=== PATIENT | male | born 1995 | race Caucasian/White ===

== ENCOUNTER 2016-10-10 20:10 | Emergency (ER) | payer OTHER, SELFPAY ==
--- NOTE | 2016-10-10 21:04 | EDDOCDS ---
Nurse's Notes [facility] Name: Evens Marie Age: 21 yrs Sex: Male : 1995 Arrival Date: 10/10/2016 Time: 20:[address] [facility] MD: Diagnosis: Irritability and anger Presentation: 10/10 20:34 Presenting complaint: Patient states: "I said something out of context like, 'I don't mb9 want to live', but I was just mad. I didn't mean it". pt denies si/hi. pt reports that his father recently . Mental Health Triage Level: Level 2: The patient was brought to the ED for evaluation because of a legal pickup order. Adult Sepsis Screening: The patient does not have new or worsening altered mentation. Patient's respiratory rate is less than 22. Systolic blood pressure is greater than 100. Patient has a qSOFA score of 0- Negative Sepsis Screen. Suicide/Homicide risk assessment- the patient denies having any suicidal and/or homicidal ideations and does not present with any other emotional, behavioral or mental health complaints. Status: Patient is not a member services representative or dependent. Transition of care: patient was not received from another setting of care. 20:34 Acuity: CHANG Level 3 mb9 20:34 Method Of Arrival: Police Car mb9 Triage Assessment: 20:36 General: Appears in no apparent distress, Behavior is appropriate for age, cooperative. mb9 Pain: Denies pain. Pt Declines HIV testing. The patient is triaged at the bedside. See Assessment in Nurses Notes section of ED record. Respiratory: Airway is patent Respiratory effort is even, unlabored. Historical: - Allergies: No known drug Allergies; - Home Meds: 1. none - PMHx: ADHD; - PSHx: none; - Social history: Smoking status: Patient states was never smoker of tobacco. No barriers to communication noted, The patient speaks fluent Albanian. - Family history: Not pertinent. - : The pt / caregiver states he / she is not on anticoagulants. Home medication list is obtained from the patient. - Exposure Risk Screening:: None identified. Screenin:01 Screening information is obtained from the patient. Fall risk: No risks identified. rw1 Assistance ADL's: requires no assistance with activities of daily living. Abuse/DV Screen: The patient / caregiver reports he/she is: not in a situation that causes fear, pain or injury. Nutritional screening: No deficits noted. Advance Directives: Currently, there is no health care proxy. home support is adequate. Assessment: 20:36 General: see triage assessment. rw1 21:01 Reassessment: Patient appears in no apparent distress at this time. Patient denies pain rw1 at this time. Patient states feeling better. Patient states symptoms have improved. Vital Signs: 20:17 BP 130 / 69; Pulse 93; Resp 18; Temp 96.9(O); Pulse Ox 96% on R/A; Weight 99.79 kg (R); rw1 Height 5 ft. 10 in. (177.80 cm) (R); Pain 0/10; 20:17 Body Mass Index 31.57 (99.79 kg, 177.80 cm) rw1 Vitals: 20:17 Log In time N/A- police car arrival. rw1 ED Course: 20:12 Patient visited by Jailyn De La Cruz. gjb 20:12 Patient moved to Waiting gjb 20:14 Patient moved to [address] 20:16 Mary Layton MD is Attending Physician. fg 20:16 Patient visited by Mary Layton MD. fg 20:16 Solo Allen LPN is Primary Nurse. rw1 20:18 Patient visited by Solo Allen LPN. rw1 20:31 Patient visited by Hola Panda. tr 20:35 Triage Initiated mb9 20:48 Patient visited by Hola Panda. tr 21:00 Patient visited by Hola Panda. tr 21:01 The patient / caregiver is instructed regarding the plan of care and ED course. rw1 21:01 No IV's were initiated during this patient's visit. No procedures done that require rw1 assistance. Order Results: There are currently no results for this order. Outcome: 20:55 Discharge ordered by Provider. fg 21:01 Discharge Assessment: Patient awake, alert and oriented x 3. No cognitive and/or rw1 functional deficits noted. Patient verbalized understanding of disposition instructions. patient administered narcotics - no. The following High Risk Discharge criteria are identified: None. Discharged to home ambulatory, with family. Condition: stable Condition: improved. Discharge instructions given to patient, Instructed on discharge instructions, follow up and referral plans. Demonstrated understanding of instructions, Pt was receptive of discharge instructions/ teaching. No special radiology studies were completed. Property sent home with patient. 21:02 Patient left the ED. rw1 Signatures: Dominic Lucas RN RN Hola Sullivan Robert, LPN LPN rw1 Renzo Arellano RN RN mb9 Mary Layton MD MD fg Beck, Gabriela gjb MTDD
--- NOTE | 2016-10-10 21:04 | EDDOCDS ---
Physician Documentation [facility] Name: Evens Marie Age: 21 yrs Sex: Male : 1995 Arrival Date: 10/10/2016 Time: 20:10 Bed [facility] Private MD: Disposition: 10/10/16 20:55 Discharged to Home/Self Care. Impression: Irritability and anger. - Condition is Stable. - Discharge Instructions: Anger Management. - Medication Reconciliation, Local Pharmacy Hours form. - Follow up: Private Physician; When: Call to arrange an appointment; Reason: Continuance of care. - Problem is chronic. - Symptoms have improved. Historical: - Allergies: No known drug Allergies; - Home Meds: 1. none - PMHx: ADHD; - PSHx: none; - Social history: Smoking status: Patient states was never smoker of tobacco. No barriers to communication noted, The patient speaks fluent Turkish. - Family history: Not pertinent. - : The pt / caregiver states he / she is not on anticoagulants. Home medication list is obtained from the patient. - Exposure Risk Screening:: None identified. Vital Signs: 10/10 20:17 BP 130 / 69; Pulse 93; Resp 18; Temp 96.9(O); Pulse Ox 96% on R/A; Weight 99.79 kg / rw1 220 lbs (R); Height 5 ft. 10 in. (177.80 cm) (R); Pain 0/10; 20:17 Body Mass Index 31.57 (99.79 kg, 177.80 cm) rw1 MDM: 20:16 Consult PFS/PSA/Bronze Plater ordered. fg 20:16 Consult PFS/PSA/Bronze Plater: Patient's case requires discussion with on-call fg Psychiatrist ordered. 20:16 PSA/PFS to call Nursing Wholesale Parts Salesperson, to enter [place] data [place] if patient fg involuntarily admitted or transferred for SI or HI ordered. 20:16 Confirm accurate psychiatric medication list and times of last dosage ordered. fg 20:16 Detain Pt Until Medically/PFS Cleared ordered. fg 20:56 Consult PFS/PSA/Bronze Plater complete. rw1 20:56 Consult PFS/PSA/Bronze Plater: Patient's case requires discussion with on-call rw1 Psychiatrist complete. 20:56 PSA/PFS to call Nursing Wholesale Parts Salesperson, to enter [place] data [place] if patient rw1 involuntarily admitted or transferred for SI or HI complete. Signatures: Dispatcher [employer] EDMS Solo Allen LPN CONVEYOR LINE BAKERY WORKER rw1 Renzo Arellano,JESSE RN mb9 Mary Layton MD MD The chart was reviewed and I authenticate all verbal orders and agree with the evaluation and treatment provided.Corrections: (The following items were deleted from the chart) 20:21 20:17 ACETAMINOPHEN LEVEL+LAB ordered. EDMS EDMS 20:21 20:17 BASIC METABOLIC PROFILE+LAB ordered. EDMS EDMS 20:21 20:17 COMPLETE BLOOD COUNT+LAB ordered. EDMS EDMS 20:21 20:17 DRUG EVAL TOXICOLOGY ED ONLY+LAB ordered. EDMS EDMS 20:21 20:17 ETHYL ALCOHOL (ETHANOL)+LAB ordered. EDMS EDMS 20:21 20:17 LIVER PROFILE+LAB ordered. EDMS EDMS 20:23 20:17 SALICYLATE LEVEL+LAB ordered. EDMS EDMS 20:23 20:17 THYROID STIMULATING HORMONE+LAB ordered. EDMS EDMS MTDD
--- NOTE | 2016-10-12 22:03 | EDDOCDS ---
Nurse's Notes [facility] Name: Evens Marie Age: 21 yrs Sex: Male : 1995 Arrival Date: 10/10/2016 Time: 20:10 Bed [facility] MD: Diagnosis: Irritability and anger Presentation: 10/10 20:34 Presenting complaint: Patient states: "I said something out of context like, 'I don't mb9 want to live', but I was just mad. I didn't mean it". pt denies si/hi. pt reports that his father recently . Mental Health Triage Level: Level 2: The patient was brought to the ED for evaluation because of a legal pickup order. Adult Sepsis Screening: The patient does not have new or worsening altered mentation. Patient's respiratory rate is less than 22. Systolic blood pressure is greater than 100. Patient has a qSOFA score of 0- Negative Sepsis Screen. Suicide/Homicide risk assessment- the patient denies having any suicidal and/or homicidal ideations and does not present with any other emotional, behavioral or mental health complaints. Status: Patient is not a creative services writer or dependent. Transition of care: patient was not received from another setting of care. 20:34 Acuity: CHANG Level 3 mb9 20:34 Method Of Arrival: Police Car mb9 Triage Assessment: 20:36 General: Appears in no apparent distress, Behavior is appropriate for age, cooperative. mb9 Pain: Denies pain. Pt Declines HIV testing. The patient is triaged at the bedside. See Assessment in Nurses Notes section of ED record. Respiratory: Airway is patent Respiratory effort is even, unlabored. Historical: - Allergies: No known drug Allergies; - Home Meds: 1. none - PMHx: ADHD; - PSHx: none; - Social history: Smoking status: Patient states was never smoker of tobacco. No barriers to communication noted, The patient speaks fluent Slovenian. - Family history: Not pertinent. - : The pt / caregiver states he / she is not on anticoagulants. Home medication list is obtained from the patient. - Exposure Risk Screening:: None identified. Screenin:01 Screening information is obtained from the patient. Fall risk: No risks identified. rw1 Assistance ADL's: requires no assistance with activities of daily living. Abuse/DV Screen: The patient / caregiver reports he/she is: not in a situation that causes fear, pain or injury. Nutritional screening: No deficits noted. Advance Directives: Currently, there is no health care proxy. home support is adequate. Assessment: 20:36 General: see triage assessment. rw1 21:01 Reassessment: Patient appears in no apparent distress at this time. Patient denies pain rw1 at this time. Patient states feeling better. Patient states symptoms have improved. Mental Health Eval: 20:57 Status: The patient is not a creative services writer or dependent. [facility] jfb Behavioral Health: The patient is not an established patient of [facility] Behavioral Health. Referral Information: Evaluation referral is generated by a police agency: 9.41 [facility] Readlynelisa Menezes badge #[id number]. The patient was referred for evaluation because PT made a statement of self harm. Subjective: The patients chief complaint is Per PT his father two years ago from a heart attack and that he got along with his dad very well but has strained relationship with his mother. His parents were not together when he had . PT's anselmo's father yesterday which has PT thinking of his father. 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 PT also admits that he and his mother argue almost everytime they have contact. PT escalated while they were arguing "I had a melt down" PT admits he punched the wall repeatedly with his right hand and that he typically will punch things if very frustrated. PT denies pain in his hand and declined treatment for it. Dr. Layton was made aware. Mother called police during the "melt down" and PT told the responding officer that he didn't want to live anymore. PT now denies he is suicidal or that he ever was. He denies hx of SI or attempts. Mother and her were interviewed separately and their main concern for PT is his angry mood swings. PT accepted referral information for outpatient care. . Delusions are denied. Patient's mood is depressed, Hallucinations are denied. Mental Health history: no relevant mental health problems or treatments. Mental Health Admissions: None. Current Outpatient Mental Health Services: None. Current living environment is The patient currently lives with a roommate, . Patient presents to Emergency Department with the following symptoms within the past 2 weeks: aggression, Punched a wall several times anger, depressed mood, labile mood, poor impulse control. Substance abuse: Pt denies. Mental status exam: Patients appearance is appropriate, Patient's behavior is cooperative, Speech is normal. Affect is appropriate. Mood is anxious. Hallucinations are denied. Appetite is normal. Memory is good. Energy level is normal. Content of thought is depressive. PT is worried about his financial situation Thought process is intact. Cognitive level is oriented to person, place, time and situation Patient's insight is fair. Judgement is fair. Rapport with interviewer is good. Suicidal Ideation is denied. Homicidal ideation is denied. Disposition: Medically cleared for disposition by Mary Layton MD Psychiatric Consult is deferred per ED physician, Dr Layton. The patient has a safe destination which is to his home The patient's discharge transportation plan is With a family member, Mother and step mother. [facility] Admission Criteria: Not Applicable. Narrative: PT discharged home with referral information. Vital Signs: 20:17 BP 130 / 69; Pulse 93; Resp 18; Temp 96.9(O); Pulse Ox 96% on R/A; Weight 99.79 kg (R); rw1 Height 5 ft. 10 in. (177.80 cm) (R); Pain 0/10; 20:17 Body Mass Index 31.57 (99.79 kg, 177.80 cm) rw1 Vitals: 20:17 Log In time N/A- police car arrival. rw1 ED Course: 20:12 Patient visited by Jailyn De La Cruz. gjb 20:12 Patient moved to Waiting gjb 20:14 Patient moved to [address] 20:16 Mary Layton MD is Attending Physician. fg 20:16 Patient visited by Mary Layton MD. fg 20:16 Solo Allen LPN is Primary Nurse. rw1 20:18 Patient visited by Solo Allen LPN. rw1 20:31 Patient visited by Hola Panda. tr 20:35 Triage Initiated mb9 20:48 Patient visited by Hola Panda. tr 21:00 Patient visited by Hola Panda. tr 21:01 The patient / caregiver is instructed regarding the plan of care and ED course. rw1 21:01 No IV's were initiated during this patient's visit. No procedures done that require rw1 assistance. 21:10 E Legal paperwork was scanned into [employer] and attached to record. jl 21:10 PSA Outpatient Referrals was scanned into [employer] and attached to record. jl 22:05 [facility] Payment Agreement was scanned into [employer] and attached to record. zo 10/11 09:07 T-Sheet-- Draft Copy was scanned into [employer] and attached to record. gb Attachments: 10/10 21:10 E Legal paperwork jl Order Results: There are currently no results for this order. Outcome: 10/10 20:55 Discharge ordered by Provider. fg 21:01 Discharge Assessment: Patient awake, alert and oriented x 3. No cognitive and/or rw1 functional deficits noted. Patient verbalized understanding of disposition instructions. patient administered narcotics - no. The following High Risk Discharge criteria are identified: None. Discharged to home ambulatory, with family. Condition: stable Condition: improved. Discharge instructions given to patient, Instructed on discharge instructions, follow up and referral plans. Demonstrated understanding of instructions, Pt was receptive of discharge instructions/ teaching. No special radiology studies were completed. Property sent home with patient. 21:02 Patient left the ED. rw1 Signatures: Dominic Lucas, RN RN Alex Poole, PSA PSA oRxie Culp Reg Reg gb Rasmussen, Tim tr Workman, Robert,DISC SANDER DISC SANDER rw1 Solitario Mcfarlane Julie, PSA PSA Renzo Nunez RN RN mb9 Mary Layton MD MD fg Beck, Gabriela gjb Chart Complete MTDD
--- NOTE | 2016-10-12 22:03 | EDDOCDS ---
Physician Documentation [facility] Name: Evens Marie Age: 21 yrs Sex: Male : 1995 Arrival Date: 10/10/2016 Time: 20:[address] [facility] Private MD: Disposition: 10/10/16 20:55 Discharged to Home/Self Care. Impression: Irritability and anger. - Condition is Stable. - Discharge Instructions: Anger Management. - Medication Reconciliation, Local Pharmacy Hours form. - Follow up: Private Physician; When: Call to arrange an appointment; Reason: Continuance of care. - Problem is chronic. - Symptoms have improved. Historical: - Allergies: No known drug Allergies; - Home Meds: 1. none - PMHx: ADHD; - PSHx: none; - Social history: Smoking status: Patient states was never smoker of tobacco. No barriers to communication noted, The patient speaks fluent Croatian. - Family history: Not pertinent. - : The pt / caregiver states he / she is not on anticoagulants. Home medication list is obtained from the patient. - Exposure Risk Screening:: None identified. Vital Signs: 10/10 20:17 BP 130 / 69; Pulse 93; Resp 18; Temp 96.9(O); Pulse Ox 96% on R/A; Weight 99.79 kg / rw1 220 lbs (R); Height 5 ft. 10 in. (177.80 cm) (R); Pain 0/10; 20:17 Body Mass Index 31.57 (99.79 kg, 177.80 cm) rw1 MDM: 20:16 Consult PFS/PSA/Neurosurgery Physician ordered. fg 20:16 Consult PFS/PSA/Neurosurgery Physician: Patient's case requires discussion with on-call fg Psychiatrist ordered. 20:16 PSA/PFS to call Nursing Psychodramatist, to [place] data [place] if patient fg involuntarily admitted or transferred for SI or HI ordered. 20:16 Confirm accurate psychiatric medication list and times of last dosage ordered. fg 20:16 Detain Pt Until Medically/PFS Cleared ordered. fg 20:56 Consult PFS/PSA/Neurosurgery Physician complete. rw1 20:56 Consult PFS/PSA/Neurosurgery Physician: Patient's case requires discussion with on-call rw1 Psychiatrist complete. 20:56 PSA/PFS to call Nursing Psychodramatist, to enter [place] data [place] if patient rw1 involuntarily admitted or transferred for SI or HI complete. 21:10 M[facility] Legal paperwork was scanned into [employer] and attached to record. jl 21:10 PSA Outpatient Referrals was scanned into MEDHOST and attached to record. jl :05 [facility] Payment Agreement was scanned into MEDHOST and attached to record. zo 10/11 09:07 T-Sheet-- Draft Copy was scanned into [employer] and attached to record. gb Signatures: Dispatcher Med[employer] EDMS Alex Manjarrez, PSA PSA jl Roxie Cardona, Reg Reg gb Alejandro,Solo,PHYSICIAN SCIENTIST PHYSICIAN SCIENTIST rw1 Solitario Mcfarlane Michael,RN RN mb9 Mary Layton MD MD fg The chart was reviewed and I authenticate all verbal orders and agree with the evaluation and treatment provided.Corrections: (The following items were deleted from the chart) 10/10 20:21 20:17 ACETAMINOPHEN LEVEL+LAB ordered. EDMS EDMS 20:21 20:17 BASIC METABOLIC PROFILE+LAB ordered. EDMS EDMS 20:21 20:17 COMPLETE BLOOD COUNT+LAB ordered. EDMS EDMS 20:21 20:17 DRUG EVAL TOXICOLOGY ED ONLY+LAB ordered. EDMS EDMS 20:21 20:17 ETHYL ALCOHOL (ETHANOL)+LAB ordered. EDMS EDMS 20:21 20:17 LIVER PROFILE+LAB ordered. EDMS EDMS 20:23 20:17 SALICYLATE LEVEL+LAB ordered. EDMS EDMS 20:23 20:17 THYROID STIMULATING HORMONE+LAB ordered. EDMS EDMS Attachments: 22:05 [facility] Payment Agreement zo 10/11 09:07 T-Sheet-- Draft Copy gb Chart Complete MTDD
--- NOTE | 2016-10-12 22:03 | EDDOCDS ---
Physician Documentation [facility] Name: Evens Marie Age: 21 yrs Sex: Male : 1995 Arrival Date: 10/10/2016 Time: 20:10 Bed [facility] Private MD: Disposition: 10/10/16 20:55 Discharged to Home/Self Care. Impression: Irritability and anger. - Condition is Stable. - Discharge Instructions: Anger Management. - Medication Reconciliation, Local Pharmacy Hours form. - Follow up: Private Physician; When: Call to arrange an appointment; Reason: Continuance of care. - Problem is chronic. - Symptoms have improved. Historical: - Allergies: No known drug Allergies; - Home Meds: 1. none - PMHx: ADHD; - PSHx: none; - Social history: Smoking status: Patient states was never smoker of tobacco. No barriers to communication noted, The patient speaks fluent Bengali. - Family history: Not pertinent. - : The pt / caregiver states he / she is not on anticoagulants. Home medication list is obtained from the patient. - Exposure Risk Screening:: None identified. Vital Signs: 10/10 20:17 BP 130 / 69; Pulse 93; Resp 18; Temp 96.9(O); Pulse Ox 96% on R/A; Weight 99.79 kg / rw1 220 lbs (R); Height 5 ft. 10 in. (177.80 cm) (R); Pain 0/10; 20:17 Body Mass Index 31.57 (99.79 kg, 177.80 cm) rw1 MDM: 20:16 Consult PFS/PSA/Substation Engineer ordered. fg 20:16 Consult PFS/PSA/Substation Engineer: Patient's case requires discussion with on-call fg Psychiatrist ordered. 20:16 PSA/PFS to call Nursing Conservation Or Heritage Architect, to [place] if patient fg involuntarily admitted or transferred for SI or HI ordered. 20:16 Confirm accurate psychiatric medication list and times of last dosage ordered. fg 20:16 Detain Pt Until Medically/PFS Cleared ordered. fg 20:56 Consult PFS/PSA/Substation Engineer complete. rw1 20:56 Consult PFS/PSA/Substation Engineer: Patient's case requires discussion with on-call rw1 Psychiatrist complete. 20:56 PSA/PFS to call Nursing Conservation Or Heritage Architect, to enter [place] data [place] if patient rw1 involuntarily admitted or transferred for SI or HI complete. 21:10 M[facility] Legal paperwork was scanned into [employer] and attached to record. jl 21:10 PSA Outpatient Referrals was scanned into MEDHOST and attached to record. jl :05 [facility] Payment Agreement was scanned into [employer]HOST and attached to record. zo 10/11 09:07 T-Sheet-- Draft Copy was scanned into [employer] and attached to record. gb Signatures: Dispatcher [employer] EDMS Alex Manjarrez, PSA PSA jl Roxie Cardona, Reg Reg gb Alejandro,Solo,PROCUREMENT INSPECTOR PROCUREMENT INSPECTOR rw1 Solitario Mcfarlane Michael,RN RN mb9 Mary Layton MD MD fg The chart was reviewed and I authenticate all verbal orders and agree with the evaluation and treatment provided.Corrections: (The following items were deleted from the chart) 10/10 20:21 20:17 ACETAMINOPHEN LEVEL+LAB ordered. EDMS EDMS 20:21 20:17 BASIC METABOLIC PROFILE+LAB ordered. EDMS EDMS 20:21 20:17 COMPLETE BLOOD COUNT+LAB ordered. EDMS EDMS 20:21 20:17 DRUG EVAL TOXICOLOGY ED ONLY+LAB ordered. EDMS EDMS 20:21 20:17 ETHYL ALCOHOL (ETHANOL)+LAB ordered. EDMS EDMS 20:21 20:17 LIVER PROFILE+LAB ordered. EDMS EDMS 20:23 20:17 SALICYLATE LEVEL+LAB ordered. EDMS EDMS 20:23 20:17 THYROID STIMULATING HORMONE+LAB ordered. EDMS EDMS Attachments: 22:05 [facility] Payment Agreement zo 10/11 09:07 T-Sheet-- Draft Copy gb Chart Complete MTDD
== END 2016-10-10 21:02 | disposition home or self-care (01) ==
LOC: M ED 20:10
DX: R45.4 Irritability and anger (principal); F90.9 Attention-deficit hyperactivity disorder, unspecified type

== ENCOUNTER 2017-09-23 23:02 | Emergency (ER) | payer SELFPAY ==
[2017-09-23] MEDS ORDERED: PEPT262T2 PO (23:15)
[2017-09-23] MEDS ORDERED: NYQU1LIQ PO (23:15)
[2017-09-24] MEDS ORDERED: ONDANSETRON 4 MG ORAL DISINTEGRATING TAB (S0181) PO ONE (00:15)
[2017-09-24] MEDS ORDERED: ZOFR4TAB3 PO (01:03)
[2017-09-24 01:33] VITALS: BP 133/71
== END 2017-09-24 01:37 | disposition home or self-care (01) ==
LOC: M ED 23:02
DX: K52.9 Noninfective gastroenteritis and colitis, unspecified (principal)

== ENCOUNTER → 2017-11-05 | Outpatient (CLI) | payer OTHER | LOC: M OUTALCOH 09:01 | DX: F12.20 Cannabis dependence, uncomplicated (principal) ==

== ENCOUNTER → 2017-11-08 | Outpatient (REF) | payer OTHER ==
[2017-11-08 18:54] LABS: INFLUENZA A AMPLIFICATION NEGATIVE (NEGATIVE); INFLUENZA B AMPLIFICATION NEGATIVE (NEGATIVE); RSV AMPLIFICATION NEGATIVE (NEGATIVE)
== END ==
LOC: M LAB REF 17:01
DX: J11.1 Influenza due to unidentified influenza virus with other respiratory manifestations (principal)

== ENCOUNTER 2017-11-19 13:55 | Outpatient (RCR) | payer OTHER | END 2017-11-27 | LOC: M OUTALCOH 11-26 09:00 | DX: F12.20 Cannabis dependence, uncomplicated (principal) ==

== ENCOUNTER 2017-12-09 07:14 | Emergency (ER) | payer OTHER ==
[2017-12-09] MEDS: ONDANSETRON 4 MG ORAL DISINTEGRATING TAB (S0181) PO (07:45)
[2017-12-09 07:48] LABS: BASO # 0.1 10^3/uL (0.0-0.2); BASO % 0.5 % (0.0-1.0); EOS # 0.1 10^3/uL (0.0-0.50); EOS % 1.3 % (0.0-3.0); HEMATOCRIT 39.1 % (42.0-52.0); HEMOGLOBIN 13.5 g/dl (14.0-18.0); IMMATURE GRANULOCYTE % 0.4 % (0-3.0); LYMPH # 2.2 10^3/uL (1.5-6.5); LYMPH % 20.9 % (24.0-44.0); MEAN CORPUSCULAR HEMOGLOBIN 31.9 pg (27.0-33.0); MEAN CORPUSCULAR HGB CONC 34.5 g/dl (32.0-36.5); MEAN CORPUSCULAR VOLUME 92.4 fl (80.0-96.0); MONO # 1.1 10^3/uL (0.0-0.8); MONO % 10.1 % (0.0-5.0); NEUTROPHILS % 66.8 % (36.0-66.0); PLATELET COUNT, AUTOMATED 164 10^3/uL (150-450); RED BLOOD COUNT 4.23 10^6/uL (4.30-6.10); RED CELL DISTRIBUTION WIDTH 12.8 % (11.5-14.5); WHITE BLOOD COUNT 10.5 10^3/uL (4.0-10.0)
[2017-12-09 08:19] LABS: ANION GAP 5 MEQ/L (8-16); BLOOD UREA NITROGEN 8 MG/DL (7-18); CARBON DIOXIDE LEVEL 28 MEQ/L (21-32); CHLORIDE LEVEL 111 MEQ/L (98-107); CREATININE FOR GFR 0.72 MG/DL (0.70-1.30); GLOMERULAR FILTRATION RATE > 60.0 (>60); GLUCOSE, FASTING 96 MG/DL (70-100); POTASSIUM SERUM 4.2 MEQ/L (3.5-5.1); SODIUM LEVEL 144 MEQ/L (136-145)
== END 2017-12-09 09:55 | disposition home or self-care (01) ==
LOC: M ED 07:14
DX: R10.13 Epigastric pain (principal); R11.2 Nausea with vomiting, unspecified; D64.9 Anemia, unspecified; E87.6 Hypokalemia
CPT/HCPCS: 80048

== ENCOUNTER 2021-05-13 03:10 | Emergency (ER) | payer MEDICAID ==
[~2021-05-13] VITALS: Ht 180.3 cm; Wt 101.8 kg
[2021-05-13 03:10] VITALS: BP 141/82
[~2021-05-13 03:10] MED LIST: NYQU1LIQ PO; OMEP40CA4 PO; PEPT262T2 PO; ZOFR4TAB14 PO
== END 2021-05-13 07:07 | disposition left against medical advice (07) ==
LOC: M ED 03:10
DX: Z53.29 Procedure and treatment not carried out because of patient's decision for other reasons (principal)

== ENCOUNTER 2022-06-01 10:11 | Emergency (ER) | payer MEDICAID ==
[~2022-06-01] VITALS: Ht 177.8 cm; Wt 100.0 kg
[2022-06-01 12:04] VITALS: BP 132/73
== END 2022-06-01 12:22 | disposition home or self-care (01) ==
LOC: M ED 10:11
DX: S93.402A Sprain of unspecified ligament of left ankle, initial encounter (principal)

== ENCOUNTER → 2022-07-02 | Outpatient (CLI) | payer MEDICAID | LOC: M SOG 14:09 | PROVIDERS: ATTEND Orthopaedic Surgery Adult Reconstructive Orthopaedic Surgery | DX: S93.402A Sprain of unspecified ligament of left ankle, initial encounter (principal); W18.30XA Fall on same level, unspecified, initial encounter; Y92.009 Unspecified place in unspecified non-institutional (private) residence as the place of occurrence of the external cause ==

== ENCOUNTER 2022-07-30 12:11 | Inpatient (IN) | payer OTHER ==
[~2022-07-30] VITALS: Ht 180.3 cm; Wt 91.9 kg
[2022-07-30] MEDS ORDERED: NS 1,000 ML IV ONE (16:25)
[2022-07-30 17:03] LABS: BASO % 0.3 % (0.0-1.0); EOS % 0.2 % (0.0-3.0); HEMATOCRIT 47.7 % (42.0-52.0); HEMOGLOBIN 16.3 g/dl (13.5-17.5); LYMPH # 1.8 10^3/uL (1.5-5.0); LYMPH % 12.1 % (24.0-44.0); MEAN CORPUSCULAR HEMOGLOBIN 31.9 pg (27.0-33.0); MEAN CORPUSCULAR HGB CONC 34.2 g/dl (32.0-36.5); MEAN CORPUSCULAR VOLUME 93.3 fl (80.0-96.0); MONO # 0.5 10^3/uL (0.0-0.8); MONO % 3.5 % (2.0-8.0); NEUTROPHILS # 12.4 10^3/uL (1.5-8.5); NEUTROPHILS % 83.5 % (36.0-66.0); PLATELET COUNT, AUTOMATED 239 10^3/uL (150-450); RED BLOOD COUNT 5.11 10^6/uL (4.30-6.10); WHITE BLOOD COUNT 14.9 10^3/uL (4.0-10.0)
[2022-07-30 17:36] LABS: ALBUMIN 3.9 GM/DL (3.2-5.2); BILIRUBIN,DIRECT 0.3 MG/DL (0.0-0.2); BILIRUBIN,TOTAL 0.9 MG/DL (0.2-1.0)
[2022-07-30] MEDS ORDERED: ISOVUE-370 76% 100ML VIAL As Ordered ONE (17:56)
[2022-07-30] MEDS ORDERED: PIPERACILLIN/TAZOBACTAM SOD 4.5 GM in D5W MINI-BAG PLUS 50 ML IV ONE (19:45)
[2022-07-30] MEDS ORDERED: IBUP-1720 PO (20:23)
[2022-07-30] MEDS ORDERED: MORPHINE 2 MG/ML 1ML VIAL IV PRN (20:25)
[2022-07-30] MEDS ORDERED: KETOROLAC 30 MG/ML 1ML VIAL IV PRN (20:25)
[2022-07-30] MEDS: LR 1,000 ML IV SCH (20:25)
[2022-07-30] MEDS ORDERED: HOME MED LIST COMPLETE! XX SCH (20:25)
[2022-07-30] MEDS ORDERED: ONDANSETRON 4MG 2ML VIAL IV PRN (20:25)
[2022-07-30] MEDS ORDERED: ACETAMINOPHEN TAB 650MG DOSE (2X325MG) PO PRN (20:25)
[2022-07-30] MEDS: DOCUSATE SODIUM 100MG CAPSULE PO SCH (21:00)
[2022-07-30 21:02] LABS: RSV AMPLIFICATION NEGATIVE (NEGATIVE)
[2022-07-31] MEDS: AMPICILLIN SOD/SULBACTAM SOD 3 GM in D5W MINI-BAG PLUS 100 ML IV SCH ×4 (02:00→22:53)
[2022-07-31 06:35] LABS: BASO # 0.1 10^3/uL (0.0-0.2); BASO % 0.7 % (0.0-1.0); EOS # 0.4 10^3/uL (0.0-0.5); EOS % 4.7 % (0.0-3.0); HEMATOCRIT 43.8 % (42.0-52.0); HEMOGLOBIN 14.7 g/dl (13.5-17.5); LYMPH % 32.6 % (24.0-44.0); MEAN CORPUSCULAR HEMOGLOBIN 31.7 pg (27.0-33.0); MEAN CORPUSCULAR HGB CONC 33.6 g/dl (32.0-36.5); MEAN CORPUSCULAR VOLUME 94.6 fl (80.0-96.0); MONO # 0.7 10^3/uL (0.0-0.8); MONO % 7.3 % (2.0-8.0); NEUTROPHILS % 54.5 % (36.0-66.0); PLATELET COUNT, AUTOMATED 196 10^3/uL (150-450); RED BLOOD COUNT 4.63 10^6/uL (4.30-6.10); WHITE BLOOD COUNT 9.2 10^3/uL (4.0-10.0)
[2022-07-31 07:08] LABS: ALBUMIN 3.2 GM/DL (3.2-5.2); ALT/SGPT 27 U/L (12-78); BILIRUBIN,TOTAL 1.1 MG/DL (0.2-1.0); BLOOD UREA NITROGEN 8 MG/DL (7-18); CALCIUM LEVEL 8.6 MG/DL (8.5-10.1); CARBON DIOXIDE LEVEL 27 MEQ/L (21-32); CHLORIDE LEVEL 110 MEQ/L (98-107); CREATININE FOR GFR 0.87 MG/DL (0.70-1.30); GLOMERULAR FILTRATION RATE > 60.0 (>60); GLUCOSE, FASTING 101 MG/DL (70-100); POTASSIUM SERUM 3.9 MEQ/L (3.5-5.1); SODIUM LEVEL 142 MEQ/L (136-145); TOTAL PROTEIN 6.7 GM/DL (6.4-8.2)
[2022-07-31] MEDS: DOCUSATE SODIUM 100MG CAPSULE PO SCH ×2 (07:08→22:53)
[2022-07-31] MEDS: LR 1,000 ML IV SCH ×2 (10:08→21:00)
[2022-07-31 14:00] VITALS: BP 122/65
[2022-07-31] MEDS ORDERED: GLYCOPYRROLATE INJ 0.2 MG/ML 2 ML VIAL As Ordered ONE (16:50)
[2022-07-31] MEDS ORDERED: SUGAMMADEX SODIUM 500 MG/5 ML VIAL (BRIDION) As Ordered ONE (16:50)
[2022-07-31] MEDS ORDERED: propofoL 200 MG/20 ML VIAL As Ordered ONE (16:52)
[2022-07-31] MEDS ORDERED: ROCURONIUM BROMIDE 50 MG/5 ML VIAL As Ordered ONE (16:53)
[2022-07-31] MEDS ORDERED: ACETAMINOPHEN 1000MG 100ML IV BAG As Ordered ONE (16:55)
[2022-07-31] MEDS ORDERED: INDOCYANINE GREEN 25MG VIAL (IC-GREEN) As Ordered ONE (17:01)
[2022-07-31] MEDS ORDERED: BUPIVACAINE HCL 0.25% 30ML VIAL As Ordered ONE (17:01)
[2022-07-31] MEDS ORDERED: LIDOCAINE 1% SDV 30ML VIAL As Ordered ONE (17:01)
[2022-07-31] MEDS ORDERED: MIDAZOLAM INJ 2MG/2ML VIAL (J2250 PER 1MG) As Ordered ONE (17:11)
[2022-07-31] MEDS ORDERED: fentaNYL 100 MCG/2 ML INJECTION As Ordered ONE ×2 (17:12→17:57)
[2022-07-31] MEDS ORDERED: LIDOCAINE 2% 100MG/5ML SDV (FOR ANES.) As Ordered ONE (17:13)
[2022-07-31] MEDS ORDERED: LACRILUBE (AKWA TEARS) OPHTH OINT 3.5 GM As Ordered ONE (17:17)
[2022-07-31] MEDS ORDERED: ONDANSETRON 4MG 2ML VIAL As Ordered ONE (17:55)
[2022-07-31] MEDS ORDERED: KETOROLAC 60MG 2ML VIAL As Ordered ONE (19:07)
[2022-07-31] MEDS ORDERED: PERCOCET 5MG/325MG TAB PO PRN (19:20)
[2022-07-31] MEDS ORDERED: fentaNYL 100 MCG/2 ML INJECTION IV PRN (19:25)
[2022-07-31] MEDS ORDERED: ONDANSETRON 4MG 2ML VIAL IV PRN (19:25)
[2022-07-31] MEDS ORDERED: LR 1,000 ML IV SCH (19:25)
[2022-07-31] MEDS: HYDROMORPHONE HCL 0.5 MG/ 0.5 ML SYRINGE (J1170 PER 1) IV PRN ×3 (19:36→20:06)
[2022-07-31] MEDS: oxyCODONE 5MG TAB PO PRN ×2 (19:52→20:20)
[2022-07-31] MEDS ORDERED: PROMETHAZINE 25MG/ML 1ML VIAL IV PRN (19:55)
[2022-07-31] MEDS ORDERED: METOCLOPRAMIDE INJ 10MG/2ML VIAL (J2765 PER 1) IV PRN (19:55)
[2022-07-31 21:00] VITALS: BP 127/81
[2022-07-31 21:30] VITALS: BP 128/82
[2022-07-31 22:00] VITALS: BP 133/78
[2022-07-31 23:00] VITALS: BP 127/82
[2022-08-01] VITALS: BP 130/79
[2022-08-01 01:00] VITALS: BP 127/78
[2022-08-01] MEDS: AMPICILLIN SOD/SULBACTAM SOD 3 GM in D5W MINI-BAG PLUS 100 ML IV SCH ×2 (03:20→08:58)
[2022-08-01] MEDS: LR 1,000 ML IV SCH (04:01)
[2022-08-01 06:00] VITALS: BP 133/72
[2022-08-01 07:01] LABS: ALBUMIN 3.2 GM/DL (3.2-5.2); ALT/SGPT 30 U/L (12-78); BILIRUBIN,TOTAL 0.9 MG/DL (0.2-1.0); BLOOD UREA NITROGEN 8 MG/DL (7-18); CALCIUM LEVEL 8.9 MG/DL (8.5-10.1); CARBON DIOXIDE LEVEL 28 MEQ/L (21-32); CHLORIDE LEVEL 107 MEQ/L (98-107); CREATININE FOR GFR 0.94 MG/DL (0.70-1.30); GLOMERULAR FILTRATION RATE > 60.0 (>60); GLUCOSE, FASTING 127 MG/DL (70-100); POTASSIUM SERUM 4.1 MEQ/L (3.5-5.1); SODIUM LEVEL 141 MEQ/L (136-145); TOTAL PROTEIN 6.8 GM/DL (6.4-8.2)
[2022-08-01] MEDS ORDERED: HYDR-3713 PO (08:53)
[2022-08-01] MEDS: DOCUSATE SODIUM 100MG CAPSULE PO SCH (08:58)
[2022-08-01 10:00] VITALS: BP 107/64
== END 2022-08-01 13:16 | disposition home or self-care (01) | DRG 263 ==
LOC: EDBD 12:11 → M ED 12:11 → M ED INP 20:25 → ENRESERV 07-31 14:29 → M MSPAV 07-31 21:00
PROVIDERS: ADMIT Surgery; ATTEND Surgery
PROC: 8E0W4CZ Robotic Assisted Procedure of Trunk Region, Percutaneous Endoscopic Approach (ICD-10-PCS; 2022-07-31)
PROC: 0FT44ZZ Resection of Gallbladder, Percutaneous Endoscopic Approach (ICD-10-PCS; principal; 2022-07-31 17:00)
DX: K80.62 Calculus of gallbladder and bile duct with acute cholecystitis without obstruction (principal)

== ENCOUNTER → 2024-01-17 | Outpatient (REF) | payer OTHER ==
[~2024-01-17] MED LIST changes: +HYDR-3713 PO; +IBUP-1720 PO
== END ==
LOC: EEVIPCON 21:06 → M LAB REF 21:06
PROVIDERS: ATTEND Physician Assistant
DX: M71.031 Abscess of bursa, right wrist (principal)